=== PATIENT | male | born 1975 | race Caucasian/White ===

== ENCOUNTER → 2022-09-24 12:34 | Outpatient (CLI) | payer OTHER, SELFPAY ==
--- NOTE | ~2022-09-24 | CT_ITS ---
Non-contrast Head CT History: Syncope Technique: Axial non-contrast imaging of the brain was performed. Dose reduction technique was used on this scan by utilizing automated exposure control and iterative reconstruction technique. The dose -length product (DLP) was 599.57 mGy-cm. Findings: There is no evidence of intracranial hemorrhage, mass lesion, or acute infarct. There is p ostoperative encephalomalacia in the anterior right temporal lobe with overlying right temporal crani otomy.. The ventricles and subarachnoid spaces are normal in size. The visualized paranasal sinuses and mastoid air cells are clear. Impression: No acute abnormality seen. 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 Correlate wit h surgical history. Reviewed, dictated and finalized at [facility]. BAKER Impression: No acute abnormality seen. Anterior right temporal lobe encephalomalacia with overlying right temporal leaf fat scraper niotomy. Correlate with surgical history.
== END ==
PROVIDERS: PCP Physician Assistant Medical; Visit Provider Physician Assistant Medical
DX: R55 Syncope and collapse (principal)
CPT/HCPCS: 70450